=== PATIENT | female | born 1955 | race Caucasian/White ===

== ENCOUNTER 2022-08-05 13:54 | Outpatient (REF) | payer MEDICARE, SELFPAY ==
--- NOTE | ~2022-08-05 | US_ITS ---
EXAMINATION: US SOFT TISSUE HEAD/NECK CLINICAL INFORMATION: Back neck tender lump. COMPARISON: None available. TECHNIQUE: Linear transducer grayscale and color Doppler examination of the posterior neck (midline). FINDINGS: No suspicious correlate to the reported symptom of palpable lump. No cervical lymphadenopathy or soft tissue mass. US/US soft tiss head and/or neck IMPRESSION: No suspicious correlate to the reported symptom of palpable lump. No cervical lymphadenopathy or soft tissue mass. If persistent clinical concern a CT neck could be obtained.
== END 2022-08-05 13:55 | disposition home or self-care (01) ==
LOC: HO.HMGCX 13:54
PROVIDERS: PCP Nurse Practitioner Family; Visit Provider Nurse Practitioner Family
DX: R22.1 Localized swelling, mass and lump, neck (principal)
CPT/HCPCS: 76536

== ENCOUNTER 2022-08-19 09:45 | Outpatient (REF) | payer MEDICARE, SELFPAY ==
[2022-08-19 09:57] LABS: MANUAL DIFF FLAG NO
[2022-08-19 10:09] LABS: Basophils Percent Auto 0.4 % (0-2); Eosinophils Absolute Auto 0.1 X10*3/uL (0.0-0.4); Hematocrit 34.1 % (37.0-47.0); Hemoglobin 11.6 g/dl (12.0-16.0); Imm Gran Abs Auto 0.01 X10*3/uL (0.00-0.03); Imm Gran Pct Auto 0.2 % (0.0-0.4); Lymphocytes Percent Auto 20.6 % (20-40); Mean Corpuscular Hemoglobin 33.8 pg (27.0-33.0); Mean Corpuscular Volume 99.4 fL (80.0-98.0); Mean Platelet Volume 9.7 fL (9.4-12.3); Monocytes Absolute Auto 0.4 X10*3/uL (0.1-1.2); Monocytes Percent Auto 7.2 % (2-11); Neutrophils Absolute Auto 3.5 x10*3/uL (2.0-8.3); Neutrophils Percent Auto 69.6 % (45-73); Platelet Count 139 X10*3/uL (160-400); Red Blood Count 3.43 X10*6/uL (4.20-5.50); Red Cell Distribution Width 13.2 % (11.0-16.0)
[2022-08-19 10:47] LABS: Alanine Aminotransferase 16 U/L (0-31); Albumin Level 4.2 g/dL (3.5-5.0); Alkaline Phosphatase 78 U/L (39-117); Anion Gap 10 (12-20); Aspartate Amino Transferase 25 U/L (5-31); Bilirubin Total 0.9 mg/dL (0.0-1.0); Blood Urea Nitrogen 42 mg/dL (9-16); Calcium 9.7 mg/dL (8.4-10.2); Carbon Dioxide 35 mmol/L (22-29); Chloride 99 mmol/L (96-108); Cholesterol 173 mg/dL; Estimated Glomerular Filt Rate 34; Glucose Fasting 108 mg/dL (60-99); HDL Cholesterol 78 mg/dL; LDL Cholesterol Calculated 83 mg/dl; Potassium 3.9 mmol/L (3.3-5.1); Sodium 140 mmol/L (135-145); Triglycerides 63 mg/dL
[2022-08-19 11:14] LABS: Folate 5.3 ng/mL (> or = 4.0); Vitamin B12 195 pg/mL (200-900)
[2022-08-19 11:17] LABS: TSH reflex Free T4 0.59 uIU/mL (0.32-4.0); Vitamin D 25-OH Total 70.9 ng/mL (>30)
[2022-08-19 11:22] LABS: Appearance Urine Clear; Color Urine Yellow; Glucose Urine UA Negative (Negative); Leukocyte Esterase Urine Trace (Negative); Nitrite Urine Negative (Negative); Specific Gravity - Urine 1.025 (1.005-1.025); UMIC TRIGGER UACC YES; Urine Blood Negative (Negative); Urine Ketones Negative (Negative); Urine Protein Negative (Neg-Trace)
[2022-08-19 11:26] LABS: Bacteria Urine None Seen (None Seen); RBC Urine 0-2 /HPF (0-2); Squamous Epithelial Cell Urine 0-2 /HPF (0-2); WBC Urine 0-5 /HPF (0-5)
== END 2022-08-19 09:46 | disposition home or self-care (01) ==
LOC: HO.LAB 09:45
PROVIDERS: PCP Nurse Practitioner Family; Visit Provider Nurse Practitioner Family
DX: I10 Essential (primary) hypertension (principal); M81.0 Age-related osteoporosis without current pathological fracture; E78.5 Hyperlipidemia, unspecified; R39.9 Unspecified symptoms and signs involving the genitourinary system
CPT/HCPCS: 36415; 80053; 80061; 81001; 81003; 82306; 82607; 82746; 84443; 85025

== ENCOUNTER 2022-09-27 12:51 | Outpatient (REF) | payer MEDICARE, SELFPAY ==
--- NOTE | ~2022-09-27 | CT_ITS ---
EXAMINATION: CT SOFT TISSUE NECK WITHOUT CONTRAST CLINICAL INFORMATION: Localized neck swelling/mass. Cervical lymphadenopathy. COMPARISON: Neck ultrasound from 08/05/2022. TECHNIQUE: Multidetector helical imaging was performed in the axial plane without intravenous contrast. Multiple axial reformats and coronal/sagittal reconstructions were created the technologist workstation for review. This CT examination was performed using dose optimization techniques as appropriate, variously including the following: *Automated exposure control. *Adjustment of mA and/or kV according to patient size (this includes techniques or standardized protocols for targeted exams where dose is matched to indication/reason for exam; i.e. extremities or head). *Use of iterative reconstruction technique. DLP: 268 mGy-cm FINDINGS: No significant cutaneous thickening or subcutaneous inflammation. No discrete fluid collection within the deep tissues of the neck. The premaxillary, retromaxillary, pterygopalatine fossa, orbital apical, parapharyngeal, and prelaryngeal adipose tissue is maintained. Normal appearance of the parotid, submandibular, and thyroid glands. Scattered subcentimeter lymph nodes bilaterally, none of which are pathologically enlarged. No demonstrated focal lesions within the intrinsic tissues of the tongue or floor of mouth. Normal mucosal contours of the pharynx and larynx. Normal appearance of the hyoid bone, thyroid cartilage, or cartilaginous trachea. The airways remains widely patent. No radiopaque foreign bodies. The atlantooccipital and atlantoaxial articulations remain well aligned. There is anatomic alignment of the vertebral bodies and posterior elements. No evidence of acute fracture or subluxation of the cervical spine. The vertebral body heights are maintained. Mild to moderate degenerative disc disease throughout the cervicothoracic spine. Facet and uncovertebral joint arthropathy leads osseous encroachment on the neural foramina from C3-C7. There is no prevertebral soft tissue swelling. The visualized portion of the skull base is without significant abnormalities. The visualized paranasal sinuses are clear. The mastoid air cells and middle ear cavities are clear. No demonstrated significant periapical odontogenic disease. CT Upper Chest: The visualized lung apices and upper mediastinum are within normal limits. CT/CT soft tissue neck wo IV con IMPRESSION: 1. No demonstrated focal lesion, collection, or lymphadenopathy within the soft tissues of the neck. 2. Mild to moderate multilevel degenerative spondyloarthropathy of the cervical spine.
== END 2022-09-27 12:52 | disposition home or self-care (01) ==
LOC: HO.CT 12:51
PROVIDERS: PCP Nurse Practitioner Family; Visit Provider Nurse Practitioner Family
DX: R22.1 Localized swelling, mass and lump, neck (principal)
CPT/HCPCS: 70490

== ENCOUNTER 2022-10-05 13:19 | Outpatient (AMB) | payer MEDICARE, SELFPAY ==
--- NOTE | 2022-10-05 13:21 | A.OFFVIS_ITS ---
Intake Vital Signs 10/05/22 13:22 10/05/22 13:58 Height 5 ft 6 in Weight 116 lb BMI 18.7 BP 168/74 H 154/82 H Blood Pressure Location Lt brachial Lt brachial Position Sitting Sitting Pulse 71 Pulse Source Pulse Oximeter Temp Source Skin Pulse Oximetry (%) 99 Oxygen Delivery Method Room Air Intake Visit Reasons: AWV G0438 Allergies sumatriptan [From Imitrex] Allergy (Intermediate, Verified 10/05/22 13:35) DIFF BREATHING latex [Latex] Allergy (Mild, Verified 10/05/22 13:35) DIFF BREATHING levofloxacin [From Levaquin] Allergy (Mild, Verified 10/05/22 13:35) DIFF BREATHING methocarbamol Allergy (Mild, Verified 10/05/22 13:35) Unknown prednisone Allergy (Mild, Verified 10/05/22 13:35) Unknown meloxicam Allergy (Unknown, Verified 10/05/22 13:35) Unknown nabumetone [From Relafen] Allergy (Unknown, Verified 10/05/22 13:35) UNK pregabalin Allergy (Unknown, Verified 10/05/22 13:35) Unknown baclofen [Baclofen] Adverse Reaction (Severe, Verified 10/05/22 13:35) CONFUSION cyclobenzaprine Adverse Reaction (Unknown, Verified 10/05/22 13:35) Unknown oxycodone Adverse Reaction (Unknown, Verified 10/05/22 13:35) Unknown Seroquil Allergy (Mild, Uncoded 10/05/22 13:35) Unknown Medication List - Last Reconciled 10/05/22 by [place] Bill albuterol sulfate 90 mcg/actuation 2 puffs inhalation Q4H PRN amoxicillin 500 mg PO ONCE chlorthalidone 25 mg PO DAILY cholecalciferol (vitamin D3) (Vitamin D3) 50 mcg PO DAILY cyanocobalamin (vitamin B-12) 1,000 mcg PO DAILY diclofenac sodium 75 mg PO BID gabapentin 300 mg PO BID gabapentin 600 mg PO BEDTIME levocetirizine 5 mg PO DAILY levothyroxine 112 mcg PO DAILY losartan 50 mg PO BID simvastatin 40 mg PO BEDTIME trazodone 100 mg PO BEDTIME venlafaxine ER 150 mg PO DAILY Fall Risk Assessment Fall risk assessment: No Falls in past year Date Fall Risk Assessed: 10/05/22 HPI AWV G0438 HPI Details Patient is a 67-year-old female who presents today for initial wellness visit. Patient is up-to-date with her health preventative screenings and immunizations. Mammogram right breast normal 08/2022, left breast BI-RADS:3 09/2022 and follow-up left breast mammogram and ultrasound in 6 months will be done by [facility]. Bone density screen 08/2022 which showed osteoporosis-will refer to endocrinology. Patient reports history of normal colonoscopy in [address] Chen at [facility] and repeat colonoscopy in 10 years per patient, will request records. History of total hysterectomy, patient does not receives Pap smears anymore. Patterson of care was reviewed with the patient and she was provided with a screening schedule. Patient has a healthcare proxy in place and she was encouraged to provide office with a copy, and she was provided with a MOLST form. In addition, patient reports worsening anxiety, she is on gabapentin and venlafaxine, reports that she does not think that gabapentin is helping her m uch, was seen by counseling in the past, not interested at this time. [facility] Medical History (Updated 10/05/22 @ 14:14 by VIRGINIA Bill) Encounter to establish care Surgical History (Updated 10/05/22 @ 14:14 by V[place]IA Bill) H/O total hysterectomy History of colonoscopy Family History Mother Hypertension Pancreatic cancer Father Hypertension Colon cancer Social History Housing: House Patient Tobacco Use Status: Never used Tobacco service: No Current occupational status: unemployed Cognitive needs: No Hearing needs: No Vision needs: No Questionnaire Medicare Wellness Checkup [age] What gender do you identify with?: female During the past 4 weeks, how much have you been bothered by emotional problems such as feeling anxious, depressed, irritable, sad or downhearted, and blue?: moderately During the past 4 weeks, has your physical & emotional health limited your social activities with family, friends, neighbors, or groups?: not at all During the past 4 weeks, how much bodily pain have you generally had?: no pain During the past 4 weeks, was someone available to help you if you needed & wanted help?: yes, as much as I wanted During the past 4 weeks, what was the hardest physical activity you could do for at least 2 minutes?: heavy Can you get to places out of walking distance without help? (For eg., can you travel alone on buses, taxis or drive your car?): Yes Can you go shopping for groceries or clothes without someone's help?: Yes Can you prepare your own meals?: Yes Can you do your housework without help?: Yes Because of any health problems, do you need the help of another person with your personal care needs such as eating, bathing, dressing or getting around the house?: No Can you handle your own money without help?: Yes During the past 4 weeks, how would you rate your health in general?: good During the past 4 weeks how have things been going for you?: pretty well Are you having difficulties driving your car?: no Do you always fasten your seat belt when you are in a car?: yes, usually During past 4 weeks, have you been bothered by the following: never: Falling or dizzy when standing up, Sexual problems?, Trouble eating well?, Teeth or denture problems? and Problems using the telephone? and seldom: Tiredness or fatigue? Have you fallen 2 or more times in the past year?: No Are you afraid of falling?: No Are you a smoker?: no During the past 4 weeks, how many drinks of wine, beer, or other alcoholic beverages did you have?: 2-5 drinks per week Do you exercise for about 20 minutes 3 or more times a week?: yes, most of the time Have you been given information to help with the following?: yes: Hazards in your house that might hurt you? and no: Keeping track of your medications? How often do you have trouble taking medicines the way you have been told to take them?: I always take medicine as prescribed How confident are you that you can control & manage most of your health problems?: very confident What is your race?: White Mini Mental State Exam (MMSE) Orientation What is the (year) (season) (date) (day) (month)?: year, season, date, day and month Score Score: 5 Activity of Daily Living Bathing - sponge bath, tub bath or shower: receives no assistance (gets in/out by self, if usual bathing means Dressing - getting clothes from closets & drawers, including inner/outer garments & fasteners.: gets clothes & gets completely dressed without help Toileting - going to the 'toilet room' for urine/bowel elimination & cleaning self/arranging clothes: goes to toilet room, cleans self, arranges clothes without help Transfer: moves in & out of bed and chair without help (may use support object) Continence: controls urination/bowel movements completely by self Feeding: feeds self without help Total Score: 0 Information obtained from: patient Using telephone: independent Traveling: independent Shopping: independent Preparing meals: independent Housework: independent Taking medicine: independent Managing money: independent PHQ-9 Over the last 2 weeks, how often have you been bothered by any of the following problems? 1. Little interest or pleasure in doing things: not at all 2. Feeling down, depressed, or hopeless: not at all 3. Trouble falling or staying asleep, or sleeping too much: more than half the days 4. Feeling tired or having little energy: not at all 5. Poor appetite or overeating: not at all 6. Feeling bad about yourself - or that you are a failure or have let yourself or your family down: not at all 7. Trouble concentrating on things, such as reading the newspaper or watching television: not at all 8. Moving or speaking so slowly that other people could have noticed. Or the opposite - being so fidgety or restless that you have been moving around a lot more than usual: more than half the days 9. Thoughts that you would be better off or of hurting yourself in some way: not at all Total score: 4 Depression Screening Interpretation: Negative [id number] - PHQ-9 Billing: Yes Source: Developed by Drs. Hector Arriaga, Ivonne Rogers, Aston Garcia and colleagues, with an educational cyril from [employer]. BRENT-7 AMB Questionnaire BRENT-7 Date BRENT - 7 assessed: 10/05/22 Feeling nervous, anxious, or on edge: 0 = Not at all Not being able to stop or control worryin = Not at all Worrying too much about different things: 0 = Not at all Trouble relaxin = Not at all Being so restless that it is hard to sit still: 0 = Not at all Becoming easily annoyed or irritable: 0 = Not at all Feeling afraid as if something awful might happen: 0 = Not at all Total BRENT-7 score (0-4 normal; 5-9 mild; 10-14 moderate; 15-21 severe): 0 Source: Developed by Drs. Hector Arriaga, Ivonne Rogers, Aston Garcia and colleagues, with an educational cyril from [employer]. BRENT-7 Assessment Billing BRENT-7 Assessment Tool: BRENT-7 Assessment 56486 AUDIT C Alcohol Use Questionnaire (AUDIT-C) 1. How often do you have a drink containing alcohol?: Monthly or less 2. How many drinks containing alcohol do you have on a typical day when you are drinking?: 1 or 2 3. How often do you have six or more drinks on one occasion?: Never Total Score: 1 Score Reviewed/Action Taken: No Thrive Questionnaire Date Thrive assessed: 10/05/22 I am a: Patient What is your living situation today?: I have a steady place to live Within the past 12 months, did the food you bought not last and you didn't have the money to get more?: Never true Within the past 12 months, did you worry whether your food would run out before you got money to buy more?: Never true Do you have trouble paying for medicines?: No Do you have trouble getting transportation to medical appointments?: No Do you have trouble paying your heating and electricity bill?: No Do you have trouble taking care of your child, family member or friend?: No Do you have trouble with day-to-day activities such as bathing, preparing meals, shopping, managing finances, etc.?: No Are you currently unemployed and looking for a job?: No Are you interested in more education?: No Currently or been in a relationship where the following occur: no concerns reported Physical Exam Vital Signs: Last Vital Signs Pulse 71 10/05/22 13:22 BP 168/74 H 10/05/22 13:22 Pulse Ox 99 10/05/22 13:22 Oxygen Delivery Method Room Air 10/05/22 13:22 BMI result Body Mass Index 18.7 Const General: cooperative and no acute distress Orientation/consciousness: patient oriented x3 HEENT Other: Whisper test: pass Eyes General: appearance normal, both eyes and all related structures Resp Effort & Inspection: normal respiratory effort Auscultation: clear to auscultation bilaterally Cardio Rate: regular rate Rhythm: regular rhythm Heart sounds: S1 normal heart sound present and S2 normal heart sound present GI Auscultation: normal bowel sounds Skin Other: Back of the neck with small palpable lump, slightly tender about 5mm in diameter-pending CT scan results Neuro Other: Balance: Normal Get up and walk: able to Romberg: negative Tandem gait: able to General: patient oriented x3 Assessment & Plan Assessment & Plan (1) Hypothyroid: Code(s): E03.9 - Hypothyroidism, unspecified Plan: Continue levothyroxine (2) Lump on neck: Code(s): R22.1 - Localized swelling, mass and lump, neck Plan: Pending CT scan results (3) Hyperlipidemia: Code(s): E78.5 - Hyperlipidemia, unspecified Plan: Low-cholesterol diet Continue current treatment (4) Insomnia: Code(s): G47.00 - Insomnia, unspecified Plan: Continue trazodone and gabapentin at bedtime Sleep hygiene (5) Anxiety: Code(s): F41.9 - Anxiety disorder, unspecified Plan: Continue gabapentin Continue venlafaxine Start hydroxyzine 1 tablet b.i.d. p.r.n.-educated about drowsiness (6) Asthma: Comment: Followed by Dr. Louis Code(s): J45.909 - Unspecified asthma, uncomplicated Plan: Stable Continue albuterol inhaler p.r.n. (7) Cyclic neutropenia: Comment: hx of bone marrow biopsy - was seen by Dr. Boudreaux at [facility] in the past. Code(s): D70.4 - Cyclic neutropenia (8) Osteoporosis: Code(s): M81.0 - Age-related osteoporosis without current pathological fracture Plan: Endocrinology referral Continue vitamin-D 50 mcg daily, patient also was encouraged to buy uyqm-nfz-kkywevo calcium and take 500 mg daily (9) Fibromyalgia: Code(s): M79.7 - Fibromyalgia Plan: Continue current treatment (10) Hypertension: Code(s): I10 - Essential (primary) hypertension Plan: Goal BP equal or less than 140/90 Continue current treatment Low-sodium diet (11) CKD (chronic kidney disease) stage 3, GFR 30-59 ml/min: Code(s): N18.30 - Chronic kidney disease, stage 3 unspecified Plan: Avoid nephrotoxic medications Continue to monitor Patient has an upcoming appointment with Dr. Yanes 10/2022 (12) Adult general medical exam: Code(s): Z00.00 - Encounter for general adult medical examination without abnormal findings Plan Follow-up in 3 months or sooner as needed Orders: Referrals Endocrinology Referral M81.0 - Age-related osteoporosis without current pathological fracture Medications: New hydroxyzine HCl 10 mg PO Q12H PRN 30 tabs 0RF anxiety F41.9 - Anxiety disorder, unspecified Quality Reporting (2019) Fall Risk Screening ([facility] 139) Last assessed Fall Risk: 10/05/22 Fall risk assessment: No Falls in past year Depression/Bipolar (159/160/161/177) PHQ-9: Total score: 4 Coding Level of Care Code Medicare First (G0438) Est Pt Level 3 (70378) Diagnoses Hypothyroid E03.9 Lump on neck R22.1 Hyperlipidemia E78.5 Insomnia G47.00 Anxiety F41.9 Asthma J45.909 Cyclic neutropenia D70.4 Osteoporosis M81.0 Fibromyalgia M79.7 Hypertension I10 CKD (chronic kidney disease) stage 3, GFR 30-59 ml/min N18.30 Adult general medical exam Z00.00 CPT Codes Advance Care Planning - Time spent: 1-15 minutes, not on file ([id number]) Additional Codes BRENT-7 Assessment Billing - BRENT-7 Assessment Tool: BRENT-7 Assessment 73999 ([id number]) Advance Care Planning Advance Care Planning discussion: Exists, not on file Date of discussion: 10/05/22 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
[2022-10-05 13:22] VITALS: BP 168/74; PULSE 71; O2SAT 99; BMI 18.7
[2022-10-05 13:58] VITALS: BP 154/82
== END 2022-10-05 14:14 | disposition home or self-care (01) ==
PROVIDERS: Visit Provider Nurse Practitioner Family
DX: Z00.00 Encounter for general adult medical examination without abnormal findings (principal); E03.9 Hypothyroidism, unspecified; F41.9 Anxiety disorder, unspecified; I10 Essential (primary) hypertension; R22.1 Localized swelling, mass and lump, neck; E78.5 Hyperlipidemia, unspecified; G47.00 Insomnia, unspecified; M81.0 Age-related osteoporosis without current pathological fracture; J45.909 Unspecified asthma, uncomplicated; D70.4 Cyclic neutropenia; M79.7 Fibromyalgia; N18.30 Chronic kidney disease, stage 3 unspecified
CPT/HCPCS: 1124F; G0438; G0439

== ENCOUNTER 2022-10-26 14:05 | Outpatient (AMB) | payer MEDICARE, SELFPAY ==
--- NOTE | 2022-10-26 14:22 | MHC.OFFWIV ---
Intake Vital Signs 10/26/22 14:24 Weight 116 lb BP 118/78 Blood Pressure Location Rt brachial Position Sitting Pulse 86 Pulse Source Pulse Oximeter Pulse Oximetry (%) 98 Oxygen Delivery Method Room Air Intake Visit Reasons: EP Back injury due to fall a week ago Intake Note: Patient here because she has lower back pain as she fell in the grass on her back when she was walking her dog and he ran down the drive way with the leash attached to pts hand which resulted in her fall. Patient Tobacco Use Status: Never used Tobacco Allergies sumatriptan [From Imitrex] Allergy (Intermediate, Verified 10/26/22 14:26) DIFF BREATHING latex [Latex] Allergy (Mild, Verified 10/26/22 14:26) DIFF BREATHING levofloxacin [From Levaquin] Allergy (Mild, Verified 10/26/22 14:26) DIFF BREATHING methocarbamol Allergy (Mild, Verified 10/26/22 14:26) Unknown prednisone Allergy (Mild, Verified 10/26/22 14:26) Unknown meloxicam Allergy (Unknown, Verified 10/26/22 14:26) Unknown nabumetone [From Relafen] Allergy (Unknown, Verified 10/26/22 14:26) UNK pregabalin Allergy (Unknown, Verified 10/26/22 14:26) Unknown baclofen [Baclofen] Adverse Reaction (Severe, Verified 10/26/22 14:26) CONFUSION cyclobenzaprine Adverse Reaction (Unknown, Verified 10/26/22 14:26) Unknown oxycodone Adverse Reaction (Unknown, Verified 10/26/22 14:26) Unknown Seroquil Allergy (Mild, Uncoded 10/26/22 14:26) Unknown Do you need a note to return to daycare/school/sports/work: No HPI EP Back injury due to fall a week ago HPI Details 67-year-old female patient presents today for ongoing lower back pain following a fall 6 days ago. She was taking her dog for a walk, when her dog pulled on his leash while on a hill, and her legs came out from under her and she fell onto her lower back. She reports a stabbing, aching pain in her lower back, R>L. she has some radiation of pain down her right buttock, however no radiation down legs or weakness of legs. No saddle anesthesia or bowel/ bladder dysfunction. She has been using ibuprofen, heating pad, and ice p.r.n. with minimal relief. [facility] Medical History Encounter to establish care Surgical History H/O total hysterectomy History of colonoscopy Family History Mother Hypertension Pancreatic cancer Father Hypertension Colon cancer Social History Housing: House Patient Tobacco Use Status: Never used Tobacco service: No Current occupational status: unemployed Cognitive needs: No Hearing needs: No Vision needs: No Review of Systems Const All systems reviewed & are unremarkable except as noted in HPI and below Physical Exam Vital Signs: Last Vital Signs Pulse 86 10/26/22 14:24 BP 118/78 10/26/22 14:24 Pulse Ox 98 10/26/22 14:24 Oxygen Delivery Method Room Air 10/26/22 14:24 Const General: cooperative, healthy appearing and no acute distress Resp Effort & Inspection: normal respiratory effort and able to speak in complete sentences Back/Spine/Pelvis Cervical Spine: normal cervical lordosis and cervical ROM normal Thoracic/Lumbar Spine: straight leg raise negative bilaterally, pain with thoraco-lumbar ROM (flex/extension) and paraspinal muscle tenderness (mid-lower lumbar TTP) on the right greater than left Pelvis: no pain with anterior-posterior compression Skin General skin exam: no rashes or lesions noted Neuro General: gait normal and Normal light touch and pain sensation Extrem General: Yes capillary refill normal and Yes no clubbing, cyanosis or edema Psych Appearance: grossly normal Mental Status: mental status grossly normal Speech and movement: Normal speech and movement present Assessment & Plan Assessment & Plan (1) Lower back pain: Code(s): M54.50 - Low back pain, unspecified Qualifiers: Back pain laterality: bilateral Chronicity: acute Sciatica presence: without sciatica Qualified Code(s): M54.50 - Low back pain, unspecified Plan: XR done in the clinic today: Plan X-ray images were reviewed by me. Patient was advised to take anti-inflammatory and muscle relaxant. She has allergies for meloxicam and cyclobenzaprine from the past. On further questioning, patient reports these were allergic reaction she had more than 10 years ago. She is willing to take these medications again. The same have been prescribed. Orders: Orders XR lumbar spine 2-3V 10/26/22 M54.50 - Low back pain, unspecified [place] Lucio Medications: New cyclobenzaprine 10 mg PO BEDTIME 14 tabs 0RF Fahad Celis MD meloxicam 15 mg PO DAILY 14 tabs 0RF Fhaad Celis MD Coding Level of Care Code Est Pt Level 4 (89178) Diagnoses Lower back pain M54.50 Back pain laterality: bilateral Chronicity: acute Sciatica presence: without sciatica
[2022-10-26 14:24] VITALS: BP 118/78; PULSE 86; O2SAT 98
== END 2022-10-26 15:46 | disposition home or self-care (01) ==
PROVIDERS: PCP Nurse Practitioner Family; Visit Provider Nurse Practitioner Family
DX: M54.50 Low back pain, unspecified (principal)
CPT/HCPCS: 99214

== ENCOUNTER 2022-10-26 14:55 | Outpatient (REF) | payer MEDICARE, SELFPAY ==
--- NOTE | ~2022-10-26 | XR_ITS ---
EXAMINATION: XR LUMBOSACRAL SPINE CLINICAL INFORMATION: Low back pain. COMPARISON: Lumbar spine radiographs dated 06/04/2011. TECHNIQUE: Three views of the lumbosacral spine. FINDINGS: There is generalized osteopenia. Normal lumbar lordosis and spinal alignment is seen. Mild to moderate degenerative disc disease is seen at L5-S1. The soft tissues are unremarkable. XR/XR lumbar spine 2-3V IMPRESSION: L5-S1 mild to moderate degenerative disc disease without significant focal change. No acute abnormality.
== END 2022-10-26 14:56 | disposition home or self-care (01) ==
LOC: HO.HMGCX 14:55
PROVIDERS: PCP Nurse Practitioner Family; Visit Provider Nurse Practitioner Family
DX: M54.50 Low back pain, unspecified (principal)
CPT/HCPCS: 72100

== ENCOUNTER 2023-02-11 11:07 | Outpatient (AMB) | payer MEDICARE, SELFPAY ==
[2023-02-11 11:23] VITALS: BP 136/74; PULSE 63; O2SAT 98; BMI 19.4
--- NOTE | 2023-02-11 11:23 | MHC.PC.OV ---
Vital Signs 02/11/23 11:23 Height 5 ft 6 in Weight 120 lb 4 oz BMI 19.4 BP 136/74 Blood Pressure Location Lt brachial Position Sitting Pulse 63 Pulse Source Pulse Oximeter Pulse Oximetry (%) 98 Oxygen Delivery Method Room Air Intake Visit Reasons: medication follow up Filling Winder Required: No Accompanied by: Self / Same As Patient Allergies sumatriptan [From Imitrex] Allergy (Intermediate, Verified 02/11/23 11:50) DIFF BREATHING latex [Latex] Allergy (Mild, Verified 02/11/23 11:50) DIFF BREATHING levofloxacin [From Levaquin] Allergy (Mild, Verified 02/11/23 11:50) DIFF BREATHING methocarbamol Allergy (Mild, Verified 02/11/23 11:50) Unknown prednisone Allergy (Mild, Verified 02/11/23 11:50) Unknown meloxicam Allergy (Unknown, Verified 02/11/23 11:50) Unknown nabumetone [From Relafen] Allergy (Unknown, Verified 02/11/23 11:50) UNK pregabalin Allergy (Unknown, Verified 02/11/23 11:50) Unknown baclofen [Baclofen] Adverse Reaction (Severe, Verified 02/11/23 11:50) CONFUSION cyclobenzaprine Adverse Reaction (Unknown, Verified 02/11/23 11:50) Unknown oxycodone Adverse Reaction (Unknown, Verified 02/11/23 11:50) Unknown Seroquil Allergy (Mild, Uncoded 02/11/23 11:50) Unknown Medication List - Last Reconciled 02/11/23 by Rafy Zuniga MD albuterol sulfate 90 mcg/actuation 2 puffs inhalation Q4H PRN amoxicillin 500 mg PO ONCE chlorthalidone 25 mg PO DAILY cholecalciferol (vitamin D3) (Vitamin D3) 50 mcg PO DAILY cyanocobalamin (vitamin B-12) 1,000 mcg PO DAILY cyclobenzaprine 10 mg PO BID diclofenac sodium 1% (Arthritis Pain (diclofenac)) 2 grams topical QID PRN gabapentin 300 mg PO BID gabapentin 600 mg PO BEDTIME hydroxyzine HCl 50 mg (2 x 25 mg) PO TID PRN levocetirizine 5 mg PO DAILY levothyroxine 112 mcg PO DAILY lidocaine 4% (Aspercreme (lidocaine)) 1 patch topical DAILY PRN losartan 50 mg PO BID simvastatin 40 mg PO BEDTIME trazodone 100 mg PO BEDTIME venlafaxine ER 150 mg PO DAILY Tobacco use date assessed: 02/11/23 Fall risk assessment: No Falls in past year Last assessed Fall Risk: 02/11/23 Dental Screening Dental Screen Date: 02/11/23 Did you have a dental visit in the last 12 months?: Yes Did you have a dental problem in the last 6 months where you did not have access to dental care?: No Was dental information given to patient?: Patient has dentist HPI medication follow up HPI Details Patient comes in today for her follow up visit Relates that she suddenly started seeing double (double vision) when she was watching television at home a couple of weeks ago Recalls that her symptoms lasted for about 2 hours before gradually subsiding on their own States that she did notice that she had a mild headache and pressure-like senstion over the sides (bitemporal areas) of her head at the time when her symptoms were ongoing - would like to get Rx for something other than Tylenol or Ibuprofen that she can take when her headaches recur States that she did have her blood pressure checked at the time and it was reportedly okay She went to see ophthalmology to have her eyes checked recently and states that the only thing they recommended was to change and adjust her eyeglass prescription States that she also had a dilated eye exam done that came out normal States that she had had no recurrence of her symptoms since and that she currently feels okay She denies any headaches or dizziness at present Denies any chest pains, no SOB No nausea/vomiting, no abdominal pain No change in bowel habits noted Needs her Losartan Rx refilled [facility] Medical History (Updated 02/13/23 @ 21:22 by Rafy Zuniga MD) Vitamin B12 deficiency Vitamin D deficiency Acquired hypothyroidism Pure hypercholesterolemia Essential hypertension Surgical History History of colonoscopy H/O total hysterectomy Family History Mother Hypertension Pancreatic cancer Father Hypertension Colon cancer Social History Housing: House Patient Tobacco Use Status: Never used Tobacco e-Cigarette/Vaping Use: Never Used service: No Current occupational status: unemployed Cognitive needs: No Hearing needs: No Vision needs: No Questionnaire PHQ-9 Over the last 2 weeks, how often have you been bothered by any of the following problems? 1. Little interest or pleasure in doing things: not at all 2. Feeling down, depressed, or hopeless: not at all 3. Trouble falling or staying asleep, or sleeping too much: more than half the days 4. Feeling tired or having little energy: not at all 5. Poor appetite or overeating: not at all 6. Feeling bad about yourself - or that you are a failure or have let yourself or your family down: not at all 7. Trouble concentrating on things, such as reading the newspaper or watching television: not at all 8. Moving or speaking so slowly that other people could have noticed. Or the opposite - being so fidgety or restless that you have been moving around a lot more than usual: more than half the days 9. Thoughts that you would be better off or of hurting yourself in some way: not at all Total score: 4 Depression Screening Interpretation: Negative Depression Screening Done: Yes 45162 - PHQ-9 Billing: Yes Source: Developed by Drs. Hector Arriaga, Ivonne Rogers, Aston Garcia and colleagues, with an educational cyril from [employer]. Thrive Questionnaire Date Thrive assessed: 02/11/23 I am a: Patient What is your living situation today?: I have a steady place to live Within the past 12 months, did the food you bought not last and you didn't have the money to get more?: Never true Within the past 12 months, did you worry whether your food would run out before you got money to buy more?: Never true Do you have trouble paying for medicines?: No Do you have trouble getting transportation to medical appointments?: No Do you have trouble paying your heating and electricity bill?: No Do you have trouble taking care of your child, family member or friend?: No Do you have trouble with day-to-day activities such as bathing, preparing meals, shopping, managing finances, etc.?: No Are you currently unemployed and looking for a job?: No Are you interested in more education?: No Please select the resources that you would like help with: None Currently or been in a relationship where the following occur: no concerns reported AUDIT C Alcohol Use Questionnaire (AUDIT-C) 1. How often do you have a drink containing alcohol?: Monthly or less 2. How many drinks containing alcohol do you have on a typical day when you are drinking?: 1 or 2 3. How often do you have six or more drinks on one occasion?: Never Total Score: 1 Score Reviewed/Action Taken: Yes BRENT-7 AMB Questionnaire BRENT-7 Date BRENT - 7 assessed: 02/11/23 Feeling nervous, anxious, or on edge: 0 = Not at all Not being able to stop or control worryin = Not at all Worrying too much about different things: 0 = Not at all Trouble relaxin = Not at all Being so restless that it is hard to sit still: 0 = Not at all Becoming easily annoyed or irritable: 0 = Not at all Feeling afraid as if something awful might happen: 0 = Not at all Total BRENT-7 score (0-4 normal; 5-9 mild; 10-14 moderate; 15-21 severe): 0 Source: Developed by Drs. Hector Arriaga, Ivonne Rogers, Aston Garcia and colleagues, with an educational cyril from [employer]. BRENT-7 Assessment Billing BRENT-7 Assessment Tool: BRENT-7 Assessment 79388 Review of Systems Const Denies chills, Denies fatigue, Denies fever(s) and Denies headache(s) (but reports (+) bitemporal headache/pressure a couple of weeks ago- see HPI) Eyes Denies blurry vision, Reports diplopia (for a few hours 2 weeks ago - see HPI), Denies eye discharge and Denies photophobia ENT Denies dysphagia, Denies dizziness, Denies otalgia, Denies headache(s) (but reports (+) bitemporal headache/pressure a couple of weeks ago- see HPI), Denies neck pain, Denies odynophagia and Denies sore throat Card Denies chest pain, Denies palpitations and Denies dyspnea Resp Denies cough and Denies dyspnea GI Denies abdominal pain, Denies constipation, Denies dysphagia, Denies heartburn, Denies diarrhea, Denies nausea, Denies odynophagia and Denies vomiting Denies difficulty voiding, Denies nocturia and Denies dysuria Musc Denies neck pain Neuro Denies dizziness and Denies headache(s) (but reports (+) bitemporal headache/pressure a couple of weeks ago- see HPI) Psych Reports anxiety Endo Denies fatigue and Denies palpitations Physical exam (Primary Care) Vital Signs: Last Vital Signs Pulse 63 02/11/23 11:23 BP 136/74 02/11/23 11:23 Pulse Ox 98 02/11/23 11:23 Oxygen Delivery Method Room Air 02/11/23 11:23 BMI result Body Mass Index 19.4 Tobacco/Smoking Status: Tobacco use Status Tobacco use date assessed 02/11/23 02/11/23 11:24 Patient Tobacco Use Status Never used Tobacco 02/11/23 11:24 e-Cigarette/Vaping Use Never Used 02/11/23 11:24 PHQ-9: PHQ-9 Score PHQ-9: Total score 4 02/11/23 11:55 Depression Screening Interpretation: Negative Thrive Assessment: Date of Thrive Assessment Date Thrive assessed 02/11/23 02/11/23 11:24 Currently or been in a relationship where the following occur: no concerns reported Const General: no acute distress and alert Orientation/consciousness: patient oriented x3 HENMT Ears: TM's normal bilaterally and EAC's normal Throat: Yes posterior oropharynx normal and Yes tonsils normal (no TP congestion) Eyes Conjunctivae: conjunctivae normal Pupils: Equal, round and reactive pupils present EOM: EOMs intact bilaterally Direct Ophthalmoscopy: No photophobia Neck Neck: Yes no lymphadenopathy, Yes no meningeal signs and Yes supple Resp Auscultation: clear to auscultation bilaterally, no rales and no wheezes Cardio Rate: regular rate Rhythm: regular rhythm Heart sounds: no murmurs GI Palpation (GI): Soft to palpation and nontender Auscultation: normal bowel sounds Skin General skin exam: no rashes or lesions noted Neuro General: patient oriented x3, moves all extremities, no meningeal signs, no focal motor deficits and CN's II-XI intact bilaterally Cranial nerves: Yes Equal, round and reactive pupils present Extrem General: Yes no clubbing, cyanosis or edema Assessment and Plan Assessment & Plan (1) Diplopia: Code(s): H53.2 - Diplopia Plan: Unknown etiology although symptoms have not recurred since they first appeared 2 weeks ago Discussed concerns that her symptoms may be a TIA, especially since she just had her eye exam done and was essentially advised that her eye exam was mostly normal except for some necessary adjustment to her eyeglass settings Will send her for some labs and a head CT JOSE for further evaluation Will provide her with a small amount of Tramadol 50 mg Rx to take as needed for increased headaches (2) Essential hypertension: Code(s): I10 - Essential (primary) hypertension Plan: Reinforced low sodium diet - goal is systolic BP of 120 to 130 mm or less Continue Losartan 50 mg BID and Chlorthalidone 25 mg QD She is instructed to continue monitoring her blood pressure regularly (3) Pure hypercholesterolemia: Code(s): E78.00 - Pure hypercholesterolemia, unspecified Plan: Reinforced low cholesterol diet Her cholesterol levels were well-controlled when they were last checked on 08/19/2022, with total cholesterol of 173 mg/dl and LDL cholesterol of 83 mg/dl Continue Simvastatin 40 mg QD Will recheck has labs and fasting lipids in 3 months for follow up (4) Acquired hypothyroidism: Code(s): E03.9 - Hypothyroidism, unspecified Plan: Will recheck her TFTs JOSE for follow up Continue Levothyroxine 112 mcg QD (5) Asthma: Comment: Followed by Dr. Louis Code(s): J45.909 - Unspecified asthma, uncomplicated Qualifiers: Asthma severity: mild Asthma persistence: intermittent Asthma complication type: uncomplicated Qualified Code(s): J45.20 - Mild intermittent asthma, uncomplicated Plan: Stable; continue Albuterol HFA 1 to 2 inhalations Q 6 hours PRN (6) Cyclic neutropenia: Comment: hx of bone marrow biopsy - was seen by Dr. Boudreaux at [facility] in the past. Code(s): D70.4 - Cyclic neutropenia Plan: Follow up with hematology as scheduled (7) Fibromyalgia: Code(s): M79.7 - Fibromyalgia Plan: Continue Cyclobenzaprine 10 mg TID PRN, Gabapentin 300 mg BID and 600 mg Q HS She is encouraged to continue to try to stay active and exercise regularly to help better manage her fibromyalgia symptoms (8) Vitamin D deficiency: Code(s): E55.9 - Vitamin D deficiency, unspecified Plan: Continue Vitamin D3 2000 units QD (9) Vitamin B12 deficiency: Code(s): E53.8 - Deficiency of other specified B group vitamins Plan: Continue Vitamin B12 1000 mcg QD Will recheck her vitamin B12 level for follow up (10) Insomnia: Code(s): G47.00 - Insomnia, unspecified Qualifiers: Insomnia type: unspecified Qualified Code(s): G47.00 - Insomnia, unspecified Plan: Sleep hygiene reinforced Continue Trazodone 100 mg Q HS PRN (11) Anxiety: Code(s): F41.9 - Anxiety disorder, unspecified Plan: Continue Vanlafaxine ER 150 mg QD and Hydroxyzine 50 mg TID PRN Follow up with psychiatry as scheduled Plan Follow up in 3 months Orders: Orders Thyroid Stimulating Hormone 02/11/23 E03.9 - Hypothyroidism, unspecified Complete Blood Count Auto Diff 02/11/23 H53.2 - Diplopia Magnesium 02/11/23 E83.42 - Hypomagnesemia, H53.2 - Diplopia CT head/brain wo IV con 02/11/23 H53.2 - Diplopia, R51.9 - Headache, unspecified Free T4 (Free Thyroxine) 02/11/23 E03.9 - Hypothyroidism, unspecified Erythrocyte Sedimentation Rate 02/11/23 H53.2 - Diplopia Comprehensive Met. Panel 02/11/23 H53.2 - Diplopia Medications: New tramadol Take ONLY NEEDED 50 mg PO BID PRN 30 tabs 0RF pain/headache Changed From losartan 50 mg PO BID To losartan 50 mg PO BID 90 days 180 tabs 3RF Coding Level of Care Code Est Pt Level 4 (90189) Diagnoses Diplopia H53.2 Essential hypertension I10 Pure hypercholesterolemia E78.00 Acquired hypothyroidism E03.9 Mild intermittent asthma without complication J45.20 Asthma severity: mild Asthma persistence: intermittent Asthma complication type: uncomplicated Cyclic neutropenia D70.4 Fibromyalgia M79.7 Vitamin D deficiency E55.9 Vitamin B12 deficiency E53.8 Insomnia, unspecified type G47.00 Insomnia type: unspecified Anxiety F41.9 Additional Codes BRENT-7 Assessment Billing - BRENT-7 Assessment Tool: BRENT-7 Assessment [id number] ([id number])
== END 2023-02-11 12:12 | disposition home or self-care (01) ==
PROVIDERS: PCP Nurse Practitioner Family; Visit Provider Internal Medicine
DX: H53.2 Diplopia (principal); D70.4 Cyclic neutropenia; I10 Essential (primary) hypertension; E78.00 Pure hypercholesterolemia, unspecified; E03.9 Hypothyroidism, unspecified; J45.20 Mild intermittent asthma, uncomplicated; M79.7 Fibromyalgia; E55.9 Vitamin D deficiency, unspecified; E53.8 Deficiency of other specified B group vitamins; G47.00 Insomnia, unspecified; F41.9 Anxiety disorder, unspecified
CPT/HCPCS: 99214

== ENCOUNTER 2023-03-10 16:41 | Outpatient (REF) | payer MEDICARE, SELFPAY | END 2023-03-10 16:42 | disposition home or self-care (01) | LOC: HO.MRI 16:41 | PROVIDERS: PCP Internal Medicine; Visit Provider Internal Medicine | DX: E03.9 Hypothyroidism, unspecified (principal); H53.2 Diplopia; E83.42 Hypomagnesemia | CPT/HCPCS: 36415; 70551; 80053; 83735; 84439; 84443; 85025; 85652 ==

== ENCOUNTER 2023-06-01 14:52 | Outpatient (AMB) | payer MEDICARE, SELFPAY ==
[2023-06-01 15:08] VITALS: BP 138/80; PULSE 75; RESP 1; O2SAT 98; BMI 18.4
--- NOTE | 2023-06-01 15:08 | A.OFFPC_ITS ---
Vital Signs 06/01/23 15:08 Height 5 ft 6 in Weight 114 lb BMI 18.4 BP 138/80 Blood Pressure Location Lt brachial Position Sitting Respiration 1 L Pulse 75 Pulse Source Pulse Oximeter Pulse Oximetry (%) 98 Oxygen Delivery Method Room Air Intake Visit Reasons: 3 month follow up Intake Note: Dr. Zuniga pt's here for a 3-month follow-up regarding diplopia, hypertension, headaches, and chronic kidney disease (CKD). Head Packager Required: No Accompanied by: Spouse Allergies sumatriptan [From Imitrex] Allergy (Intermediate, Verified 06/01/23 15:42) DIFF BREATHING latex [Latex] Allergy (Mild, Verified 06/01/23 15:42) DIFF BREATHING levofloxacin [From Levaquin] Allergy (Mild, Verified 06/01/23 15:42) DIFF BREATHING methocarbamol Allergy (Mild, Verified 06/01/23 15:42) Unknown prednisone Allergy (Mild, Verified 06/01/23 15:42) Unknown meloxicam Allergy (Unknown, Verified 06/01/23 15:42) Unknown nabumetone [From Relafen] Allergy (Unknown, Verified 06/01/23 15:42) UNK pregabalin Allergy (Unknown, Verified 06/01/23 15:42) Unknown baclofen [Baclofen] Adverse Reaction (Severe, Verified 06/01/23 15:42) CONFUSION cyclobenzaprine Adverse Reaction (Unknown, Verified 06/01/23 15:42) Unknown oxycodone Adverse Reaction (Unknown, Verified 06/01/23 15:42) Unknown Seroquil Allergy (Mild, Uncoded 06/01/23 15:10) Unknown Medication List - Last Reconciled 06/01/23 by Obey Foster PA-C albuterol sulfate 90 mcg/actuation 2 puffs inhalation Q4H PRN flieywwenb-ezskkygeextrc-cecv 50-300-40 mg (Fioricet) 1 cap PO Q8H PRN chlorthalidone 25 mg PO DAILY 90 days cholecalciferol (vitamin D3) (Vitamin D3) 50 mcg PO DAILY cyanocobalamin (vitamin B-12) 1,000 mcg PO DAILY cyclobenzaprine 10 mg PO BID diclofenac sodium 1% (Arthritis Pain (diclofenac)) 2 grams topical QID PRN gabapentin 600 mg PO BEDTIME 30 days gabapentin 300 mg PO BID levocetirizine 5 mg PO DAILY levothyroxine 112 mcg PO DAILY lidocaine 4% (Aspercreme (lidocaine)) 1 patch topical DAILY PRN losartan 50 mg PO BID 90 days simvastatin 40 mg PO BEDTIME tramadol 50 mg PO BID PRN trazodone 100 mg PO BEDTIME venlafaxine ER 150 mg PO DAILY 90 days Tobacco use date assessed: 06/01/23 Fall risk assessment: No Falls in past year Last assessed Fall Risk: 06/01/23 Dental Screening Dental Screen Date: 06/01/23 Did you have a dental visit in the last 12 months?: Yes Did you have a dental problem in the last 6 months where you did not have access to dental care?: No Was dental information given to patient?: Patient has dentist HPI 3 month follow up HPI Details Patient is a 67-year-old female here today for a three-month follow-up visit. This is the 1st time I am meeting this 67-year-old female with a past medical history significant for hypothyroidism, hyperlipidemia, hypertension, CKD stage 3, anxiety. Concern--> had a recent episode of diplopia, was sent for MRI brain which did show some chronic microangiopathy though no acute CVA. ? TIA. She has followed up with her child care cook though reports no acute eye issue. Will manage with risk reduction modalities .. Anxiety:Patient reports her anxiety has been elevated as of lately. She takes care of a cousin whom needs a lot of help with her activities of daily living. This causes patient lot of stress. Has use hydroxyzine though felt it was not effective. Will trial low-dose lorazepam on a as needed basis for anxiety. .. Hypertension: Blood pressure acceptable today in office. Will continue current dose of blood pressure medication. .. Hypothyroidism: Most recent TSH stable, will continue current dose of levothyroxine at 112 mcg Laboratory Tests 03/10/23 16:48 Hgb 13.3 [facility] Medical History (Updated 06/01/23 @ 15:59 by Obey Foster PA-C) Vitamin B12 deficiency Vitamin D deficiency Acquired hypothyroidism Pure hypercholesterolemia Essential hypertension Surgical History History of colonoscopy H/O total hysterectomy Family History Mother Hypertension Pancreatic cancer Father Hypertension Colon cancer Social History Housing: House Patient Tobacco Use Status: Never used Tobacco e-Cigarette/Vaping Use: Never Used service: No Current occupational status: unemployed Cognitive needs: No Hearing needs: No Vision needs: No Questionnaire PHQ-9 Over the last 2 weeks, how often have you been bothered by any of the following problems? 1. Little interest or pleasure in doing things: not at all 2. Feeling down, depressed, or hopeless: not at all 3. Trouble falling or staying asleep, or sleeping too much: not at all 4. Feeling tired or having little energy: not at all 5. Poor appetite or overeating: not at all 6. Feeling bad about yourself - or that you are a failure or have let yourself or your family down: not at all 7. Trouble concentrating on things, such as reading the newspaper or watching television: not at all 8. Moving or speaking so slowly that other people could have noticed. Or the opposite - being so fidgety or restless that you have been moving around a lot more than usual: not at all 9. Thoughts that you would be better off or of hurting yourself in some way: not at all Total score: 0 Depression Screening Interpretation: Negative Depression Screening Done: Yes 06851 - PHQ-9 Billing: Yes Source: Developed by Drs. Hector Arriaga, Ivonne Rogers, Aston Garcia and colleagues, with an educational cyril from [employer]. Thrive Questionnaire Date Thrive assessed: 06/01/23 I am a: Patient What is your living situation today?: I have a steady place to live Within the past 12 months, did the food you bought not last and you didn't have the money to get more?: Never true Within the past 12 months, did you worry whether your food would run out before you got money to buy more?: Never true Do you have trouble paying for medicines?: No Do you have trouble getting transportation to medical appointments?: No Do you have trouble paying your heating and electricity bill?: No Do you have trouble taking care of your child, family member or friend?: No Do you have trouble with day-to-day activities such as bathing, preparing meals, shopping, managing finances, etc.?: No Are you currently unemployed and looking for a job?: No Are you interested in more education?: No Please select the resources that you would like help with: None THRIVE Score: 0 AUDIT C Alcohol Use Questionnaire (AUDIT-C) 1. How often do you have a drink containing alcohol?: Monthly or less 2. How many drinks containing alcohol do you have on a typical day when you are drinking?: 1 or 2 3. How often do you have six or more drinks on one occasion?: Never Total Score: 1 BRENT-7 AMB Questionnaire BRENT-7 Date BRENT - 7 assessed: 06/01/23 Feeling nervous, anxious, or on edge: 3 = Nearly every day Not being able to stop or control worryin = Nearly every day Worrying too much about different things: 2 = More than half the days Trouble relaxin = Nearly every day Being so restless that it is hard to sit still: 2 = More than half the days Becoming easily annoyed or irritable: 2 = More than half the days Feeling afraid as if something awful might happen: 1 = Several days Total BRENT-7 score (0-4 normal; 5-9 mild; 10-14 moderate; 15-21 severe): 16 Source: Developed by Drs. Hector Arriaga, Ivonne Rogers, Aston Garcia and colleagues, with an educational cyril from [employer]. BRENT-7 Assessment Billing BRENT-7 Assessment Tool: BRENT-7 Assessment 30737 Review of Systems Const Denies headache(s) Eyes Denies loss of vision ENT Denies vertigo, Denies dizziness, Denies headache(s) and Denies sore throat Card Denies chest pain, Denies leg edema and Denies lightheadedness Resp Denies cough, Denies hemoptysis and Denies wheezing GI Denies abdominal pain, Denies melena, Denies constipation, Denies diarrhea and Denies vomiting Denies urinary frequency, Denies dysuria and Denies urinary urgency Musc Denies arthralgias, Denies joint swelling, Denies numbness and Denies tingling Neuro Denies Abnormal speech present, Denies behavioral changes, Denies vertigo, Denies dizziness, Denies headache(s), Denies loss of vision, Denies memory loss, Denies numbness and Denies tingling Psych Denies anxiety, Denies behavioral changes, Denies depression, Denies memory loss and Denies panic attacks Eladio/Lymph Denies easy bleeding and Denies easy bruising Aller/Immun Denies wheezing Physical exam (Primary Care) Vital Signs: Last Vital Signs Pulse 75 06/01/23 15:08 Resp 1 L 06/01/23 15:08 BP 138/80 06/01/23 15:08 Pulse Ox 98 06/01/23 15:08 Oxygen Delivery Method Room Air 06/01/23 15:08 BMI result Body Mass Index 18.4 Tobacco/Smoking Status: Tobacco use Status Tobacco use date assessed 06/01/23 06/01/23 15:18 Patient Tobacco Use Status Never used Tobacco 06/01/23 15:11 e-Cigarette/Vaping Use Never Used 06/01/23 15:11 PHQ-9: PHQ-9 Score PHQ-9: Total score 0 06/02/23 08:15 Depression Screening Interpretation: Negative Thrive Assessment: Date of Thrive Assessment Date Thrive assessed 06/01/23 06/01/23 15:19 Const General: healthy appearing, no acute distress, alert and awake Nutritional Appearance: well nourished Orientation/consciousness: oriented to person, oriented to place and oriented to time HENMT Ears: TM's normal bilaterally General nose exam: Normal nasal mucous membranes and turbinates present Eyes Conjunctivae: conjunctivae normal Sclerae: sclerae normal Pupils: Equal, round and reactive pupils present Neck Neck: Yes no lymphadenopathy and Yes no JVD Thyroid: Thyroid normal Carotids: no bruits Resp Effort & Inspection: normal respiratory effort and not tachypneic Auscultation: no crackles, no rales, no rhonchi and no wheezes Cardio Rate: regular rate Rhythm: regular rhythm Heart sounds: no murmurs and normal S1 and S2 GI Palpation (GI): Soft to palpation, nontender, no hepatomegaly and no splenomegaly Auscultation: normal bowel sounds Skin General skin exam: no rashes or lesions noted and dry skin Neuro General: oriented to person, oriented to place and oriented to time Cranial nerves: Yes Equal, round and reactive pupils present Speech: No Abnormal speech present Gait exam (Neuro): Normal gait present Motor exam (neuro): no tremor noted Extrem Right upper extremity: full ROM Left upper extremity: full ROM Right lower extremity: full ROM; no edema Left lower extremity: full ROM; no edema Psych Mental Status: mental status grossly normal Speech and movement: Normal speech and movement present Affect: normal affect Attitude: cooperative Thought process: Normal thought process present Assessment and Plan Assessment & Plan (1) Acquired hypothyroidism: Code(s): E03.9 - Hypothyroidism, unspecified Plan: Patient's most recent TSH has been stable. Will continue her current dose of levothyroxine. (2) Pure hypercholesterolemia: Code(s): E78.00 - Pure hypercholesterolemia, unspecified Plan: Patient continues on statin therapy without any significant side effects. Most recent lipid panel showing stable total cholesterol and LDL. Goal LDL to remain below 130 (3) Essential hypertension: Code(s): I10 - Essential (primary) hypertension Plan: Patient's blood pressure acceptable today in office. Will blood pressure remain below 140/90 (4) Anxiety: Code(s): F41.9 - Anxiety disorder, unspecified Plan: Patient reports her anxiety has been elevated as of lately. She takes care of a cousin whom needs a lot of help with her activities of daily living. This causes patient lot of stress. Has use hydroxyzine though felt it was not effective. Will trial low-dose lorazepam on a as needed basis for anxiety. (5) CKD (chronic kidney disease) stage 3, GFR 30-59 ml/min: Code(s): N18.30 - Chronic kidney disease, stage 3 unspecified Qualifiers: Chronic kidney disease stage 3 subtype: unspecified whether 3a or 3b Qualified Code(s): N18.30 - Chronic kidney disease, stage 3 unspecified Plan: Most recent labs showing improved renal function. GFR at 46. She is now followed by a manufacturing software engineer. Will continue to avoid nephrotoxin medication. Orders: Orders Vitamin D 25-OH Total 06/01/23 E55.9 - Vitamin D deficiency, unspecified Comprehensive [place]. Panel Fast 06/01/23 I10 - Essential (primary) hypertension Lipid Panel 06/01/23 E78.00 - Pure hypercholesterolemia, unspecified TSH reflex Free T4 06/01/23 E03.9 - Hypothyroidism, unspecified Vitamin B12 and Folate 06/01/23 E53.8 - Deficiency of other specified B group vitamins Medications: New lorazepam 0.5 mg PO BID 7 days PRN 14 tabs 0RF anxiety F41.9 - Anxiety disorder, unspecified Coding Level of Care Code Est Pt Level 4 (99104) Diagnoses Acquired hypothyroidism E03.9 Pure hypercholesterolemia E78.00 Essential hypertension I10 Anxiety F41.9 Stage 3 chronic kidney disease, unspecified whether stage 3a or 3b CKD N18.30 Chronic kidney disease stage 3 subtype: unspecified whether 3a or 3b Additional Codes BRENT-7 Assessment Billing - BRENT-7 Assessment Tool: BRENT-7 Assessment [id number] ([id number])
== END 2023-06-01 16:39 | disposition home or self-care (01) ==
PROVIDERS: PCP Internal Medicine; Visit Provider Physician Assistant
DX: E03.9 Hypothyroidism, unspecified (principal); I12.9 Hypertensive chronic kidney disease with stage 1 through stage 4 chronic kidney disease, or unspecified chronic kidney disease; N18.30 Chronic kidney disease, stage 3 unspecified; F41.9 Anxiety disorder, unspecified
CPT/HCPCS: 99214